=== PATIENT | male | born 1980 | race Caucasian/White ===

== ENCOUNTER 2024-02-13 15:57 | Emergency (ER) | payer BC ==
[~2024-02-13] VITALS: Ht 175.3 cm; Wt 113.6 kg
[2024-02-13 15:59] VITALS: TEMP 98.6
[2024-02-13 16:14] LABS: BASO # 0.1 K/mm3 (0.0-0.2); BASO % 0.8 % (0.0-2.0); EOS # 0.2 K/mm3 (0.0-0.7); GRAN # 4.3 K/mm3 (1.4-6.5); GRAN % 58.9 % (42.2-75.2); HEMATOCRIT 44.9 % (42.0-52.0); HEMOGLOBIN 15.2 g/dl (13.5-18.0); LYMPH # 2.3 K/mm3 (1.2-3.4); LYMPH % 31.2 % (20.0-51.0); MEAN CELL VOLUME 83 fl (80.0-100.0); MEAN CORPUSCULAR HEMOGLOBIN 28 pg (27-31); MEAN CORPUSCULAR HGB CONC 34 g/dl (33.0-37.0); MEAN PLATELET VOLUME 9.9 fl (7.4-10.4); MONO # 0.4 K/mm3 (0.1-0.6); PLATELET COUNT 305 K/mm3 (130-400); RED BLOOD COUNT 5.42 M/mm3 (4.20-5.60); REDCELL DISTRIBUTION WIDTH-CV 13.2 % (11.5-14.5)
[2024-02-13 16:37] LABS: ALANINE AMINOTRANSFERASE 35 U/L (0-55); ALKALINE PHOSPHATASE 109 U/L (40-150); ANION GAP 11 mmol/L (7-16); AST,SGOT 15 U/L (5-34); BILIRUBIN,TOTAL 0.4 mg/dL (0.2-1.2); BLOOD UREA NITROGEN 11 mg/dL (9-21); CALCIUM 9.6 mg/dL (8.4-10.2); CHLORIDE 105 mEq/L (98-107); CREATININE, serum 0.94 mg/dL (0.72-1.25); GLUCOSE 108 mg/dL (70-99); LIPASE 14 U/L (8-78); POTASSIUM 4.1 mEq/L (3.5-4.5); SODIUM 140 mEq/L (136-145); TOTAL PROTEIN 7.1 g/dl (6.2-8.1)
[2024-02-13 16:43] LABS: TROPONIN-I < 0.010 ng/mL (0.00-0.033)
[2024-02-13 20:00] VITALS: BP 161/110; PULSE 86
== END 2024-02-13 20:04 | disposition home or self-care (01) ==
LOC: COL.ER 15:57
PROVIDERS: Emergency Medicine
DX: R07.89 Other chest pain (principal)